=== PATIENT | female | born 1930 | race Caucasian/White ===

== ENCOUNTER 2016-12-12 21:04 | Inpatient (IN) | payer OTHER ==
[~2016-12-12] VITALS: Ht 152.4 cm; Wt 54.4 kg
[2016-12-12 22:15] VITALS: BP 118/57; RESP 18
[2016-12-12 22:22] VITALS: PULSE 80
[2016-12-12 22:28] VITALS: Ht 152.4 cm; Wt 54.4 kg
[2016-12-12 23:08] VITALS: BP 111/54; RESP 18
[2016-12-12] MEDS ORDERED: TEMA15CA PO (23:54)
[2016-12-12] MEDS ORDERED: VIT B6 PO (23:54)
[2016-12-12] MEDS ORDERED: GABA300C16 PO (23:54)
[2016-12-12] MEDS ORDERED: FURO-110 PO (23:54)
[2016-12-13] VITALS (12 sets, daily range): BP systolic 108–136; BP diastolic 56–63; PULSE 80–93; RESP 16–18
[2016-12-13] MEDS ORDERED: OXYBUTYNIN
[2016-12-13] MEDS ORDERED: CALC-277 PO
[2016-12-13] MEDS ORDERED: DOCU-144 PO
[2016-12-13] MEDS: SOD CHLORIDE 0.9% 1,000 ML IV SCH ×2 (00:17→13:49)
[2016-12-13 01:09] LABS: BASOPHIL # 0.1 10^3/ul (0.0-0.1); BASOPHILS % 0.4 % (0.0-2.0); EOSINOPHILS # 0.1 10^3/ul (0.0-0.5); EOSINOPHILS % 0.9 % (0.0-7.0); HEMATOCRIT 33.8 % (37.0-47.0); HEMOGLOBIN 11.1 g/dl (12.0-16.0); LYMPHOCYTES # 3.3 10^3/ul (0.8-2.9); LYMPHOCYTES % 21.9 % (15.0-51.0); MEAN CORPUSCULAR HEMOGLOBIN 29.7 pg (29.0-33.0); MEAN CORPUSCULAR HGB CONC 32.8 g/dl (32.0-37.0); MEAN CORPUSCULAR VOLUME 90.4 fl (82.0-101.0); MEAN PLATELET VOLUME 10.3 fl (7.4-10.4); MONOCYTE # 1.5 10^3/ul (0.3-0.9); NEUTROPHIL # 9.9 10^3/ul (1.6-7.5); NEUTROPHILS % 66.5 % (39.0-77.0); PLATELET COUNT 289 10^3/UL (140-415); RED BLOOD COUNT 3.74 10^6/ul (4.20-5.40); RED CELL DISTRIBUTION WIDTH 14.7 % (11.5-14.5); WHITE BLOOD COUNT 14.9 10^3/ul (4.8-10.8)
[2016-12-13 01:35] LABS: ALBUMIN/GLOBULIN RATIO 0.75; BILIRUBIN,INDIRECT 0.6 mg/dl (0-1.1); BILIRUBIN,TOTAL 0.6 mg/dl (0.2-1.3); CALCIUM 8.8 mg/dl (8.4-10.2); CREATININE 0.75 mg/dl (0.44-1.00); MAGNESIUM 1.6 mg/dl (1.7-2.5); POTASSIUM 4.1 mmol/L (3.5-5.1)
[2016-12-13] MEDS ORDERED: BISACODYL (EC) 5 MG TAB PO PRN (03:30)
[2016-12-13] MEDS ORDERED: NACL 0.9% 3 ML SYG IV SCH (03:30)
[2016-12-13] MEDS ORDERED: ONDANSETRON 4 MG INJ IV PRN (03:30)
[2016-12-13] MEDS ORDERED: DOCUSATE SODIUM 100 MG CAP PO PRN ×2 (03:30)
[2016-12-13] MEDS ORDERED: ACETAMINOPHEN 325 MG TAB PO PRN (03:30)
--- NOTE | 2016-12-13 03:38 | HP ---
Date/Time of Note Date/Time of Note DATE: 12/13/16 TIME: 03:36 Assessment/Plan VTE Prophylaxis VTE Prophylaxis Intervention: SCD's Lines/Catheters IV Catheter Type (from [facility]): Saline Lock Urinary Cath still in place: No Assessment/Plan Chief Complaint/Hosp Course This is a 86-year-old female being admitted to the telemetry floor for: #1 community-acquired pneumonia: Leukocytosis of 14. patient was originally admitted to [facility] and treated with pneumonia. This however appears to not be fully resolved at this time. As she has been treated with antibiotics within the last 90 days. At the current time I will start her on vancomycin and Zosyn, will avoid fluoroquinolones as she has an allergy to ciprofloxacin. Her current 65 score is 1. Upon my examination she does appear to be stable and and not in any acute respiratory distress. Likely in the morning patient will be able to be downgraded to [facility]Sur. #2 lactic acidosis: Resolved at this time. Patient originally had a lactic acid of 2.6 at [facility] upon arrival to [facility] her level is now 1.1 #3hx of thyroid disorder: Patient is not currently on any medication. Patient can likely have this followed up as an outpatient. #4 urinary incontinence: Continue oxybutynin, Lasix. I am unsure of this regimen as patient does not have any renal failure. However I will continue her home medications for now, and she can follow up with the primary care doctor as an outpatient. #5 Insomnia: We will resume temazepam #6 DVT and GI prophylaxis: SCDs, acid gloria Further treatment strategy will be implemented as per the clinical course Problems: HPI/ROS Admit Date/Time Admit Date/Time Dec 12, 2016 at 21:47 Hx of Present Illness Chief complaint: Shaking and chills and cough This is a 86-year-old female originally presented to [facility] for symptoms of shaking chills and cough. Patient according to the transfer documentation has been home for about 1 week after she had recently had a one- week admission to [facility] for pneumonia. she has not taken any antibiotics for the last 5 days. Upon review of the medical records do not see any previous admissions under her name [facility]. When the daughter was questioned at the bedside she did reports that the mom was actually a [facility]. At the current time patient denies any shortness of breath or chest pain. She denies any cough at the current time. Denies any fevers at this time. Allergies: Ciprofloxacin Medications: See VERONICA CANCINO Const: As per HPI Eyes : No pain discharge or redness or change in visual acuity ENT: No pain, sore throat, congestion, congestion, dysphagia or discharge Respiratory: As per HPI Cardiovascular: No chest pain, palpitation, PND, or edema GI : no change in appetite, abdominal pain, nausea, vomiting, diarrhea, constipation, or change in the color his stool Genitourinary: No dysuria, hematuria, flank pain , discharge or CVA tenderness Musculoskeletal: No joint pain, back pain, neck pain, restricted range of motion in neck or joints Skin: No rash, bruising or hives Neuro: No headache, dizziness, syncope, seizure, focal weakness Endocrine: No polyuria, polydipsia, temperature intolerance Psych: No hallucination, depression, anxiety or suicidal ideation PMH/Family/Social Past Medical History Urinary incontinence, back pain, insomnia, thyroid disorder currently not on medications for thyroid Past Surgical History Patient unable to provide information Family History Significant Family History: no pertinent family hx Social History Alcohol Use: none Smoking Status: Former smoker Drug Use: none Exam/Review of Systems Vital Signs Vitals Vital Signs Date Time Temp Pulse Resp B/P Pulse Ox O2 Delivery O2 Flow Rate FiO2 12/13/16 03:10 98.3 91 18 113/58 96 12/12/16 22:44 Nasal Cannula 2.0 Exam Exam General: Patient is well-developed well-nourished The patient is alert oriented -3 lying comfortably in bed. HEENT: Atraumatic, normocephalic. The pupils are equal, round and reactive. Extraocular motor are intact Neck: Supple with full range of motion. No rigidity or meningismus Chest: Nontender Lungs: Mild rhonchi at the right lower field Heart: Normal S1-S2, Regular rhythm and rate. No murmur, S3, or S4 Abdomen: Soft , nontender, nondistended , bowel sounds are present. No guarding no rebound tenderness , No masses or organomegaly. No costovertebral temporal angle mass Extremities: Normal to inspection, no edema no cyanosis Neurologic: Normal mental status, speech normal, cranial nerves II through XII are intact, motor and sensory are intact, no focal weakness Additional Comments Pertinent labs from transfer facility: White blood cell count 14.8 hemoglobin 11.8 hematocrit 35.0 platelets 356 lactate 1.9 chest x-ray findings right mid and upper lung zone airspace disease mild peribronchial thickening in the lower lung zones, nonspecific finding which can be seen in reactive airway disease. See transfer documentation for further detail. Labs Result Diagram: 12/13/164 12/13/16 0034 Medications Medications Current Medications Sodium Chloride (NS) 1,000 ml @ 70 mls/hr [id number] IV Last administered on 12/13t 00:17; Admin Dose 70 MLS/HR; Start 12/13/16 at 00:00 EZIO TRUJILLO Dec 13, 2016 03:38
[2016-12-13] MEDS ORDERED: MAGNESIUM SULFATE 1 GM/D5W 100 ML IVPB ONE (05:00)
[2016-12-13] MEDS: PANTOPRAZOLE 40 MG INJ IV SCH (05:04)
[2016-12-13] MEDS: PIPER-TAZO 3.375 GM IV (PMX) 100 ML IVPB SCH ×4 (05:04→23:39)
[2016-12-13] MEDS ORDERED: VANCOMYCIN 1 GM in NS 250 ML IVPB SCH (05:30)
[2016-12-13] MEDS ORDERED: VANCOMYCIN IV PER PHARMACY XX SCH (05:30)
[2016-12-13] MEDS: GABAPENTIN 300 MG CAP PO SCH ×3 (09:50→21:52)
[2016-12-13 13:13] LABS: BASOPHIL # 0.1 10^3/ul (0.0-0.1); BASOPHILS % 0.5 % (0.0-2.0); EOSINOPHILS # 0.2 10^3/ul (0.0-0.5); EOSINOPHILS % 1.5 % (0.0-7.0); HEMATOCRIT 35.5 % (37.0-47.0); HEMOGLOBIN 11.3 g/dl (12.0-16.0); LYMPHOCYTES # 3.7 10^3/ul (0.8-2.9); MEAN CORPUSCULAR HEMOGLOBIN 28.6 pg (29.0-33.0); MEAN CORPUSCULAR HGB CONC 31.8 g/dl (32.0-37.0); MEAN CORPUSCULAR VOLUME 89.9 fl (82.0-101.0); MEAN PLATELET VOLUME 10.3 fl (7.4-10.4); MONOCYTES % 7.8 % (0.0-11.0); NEUTROPHIL # 8.1 10^3/ul (1.6-7.5); NEUTROPHILS % 61.9 % (39.0-77.0); PLATELET COUNT 294 10^3/UL (140-415); RED BLOOD COUNT 3.95 10^6/ul (4.20-5.40)
[2016-12-13 13:31] LABS: CHOL/HDL RATIO 4.4 RATIO
[2016-12-13 13:32] LABS: ALBUMIN 3.3 g/dl (3.3-4.9); ALBUMIN/GLOBULIN RATIO 0.82; BILIRUBIN,INDIRECT 0.5 mg/dl (0-1.1); BILIRUBIN,TOTAL 0.5 mg/dl (0.2-1.3); CALCIUM 9.1 mg/dl (8.4-10.2); CREATININE 0.8 mg/dl (0.44-1.00); TOTAL PROTEIN 7.3 g/dl (6.1-8.1)
[2016-12-13] MEDS: ZOLPIDEM 5 MG TAB PO PRN (23:39)
[2016-12-14] VITALS (11 sets, daily range): BP systolic 114–121; BP diastolic 56–63; PULSE 82–92; RESP 16–20
[2016-12-14] MEDS: SOD CHLORIDE 0.9% 1,000 ML IV SCH ×2 (03:43→13:04)
[2016-12-14] MEDS: PIPER-TAZO 3.375 GM IV (PMX) 100 ML IVPB SCH ×3 (05:46→18:33)
[2016-12-14] MEDS: PANTOPRAZOLE 40 MG INJ IV SCH (05:46)
[2016-12-14] MEDS: VANCOMYCIN 750 MG in SOD CHLORIDE 0.9% 150 ML IVPB SCH (06:10)
--- NOTE | 2016-12-14 09:31 | RADRPT ---
PROCEDURE: XR Chest 1 View. CLINICAL INDICATION: Shortness of breath, infiltrates. TECHNIQUE: AP view of the chest was obtained. COMPARISON: None. FINDINGS: The heart size is within normal limits. Calcified atherosclerosis is noted in the aorta. The lungs are hyperexpanded. Diffuse interstitial prominence is seen in both lungs. Patchy right upper and low er lobe infiltrates are identified. Scattered atelectasis versus minimal infiltrates are identified in the left lower lobe. Osseous structures are intact. IMPRESSION: Calcified atherosclerosis in the aorta. Hyperexpanded lungs with diffuse mild interstitial prominence in both lungs. Interstitial prominenc e could be chronic. Findings could reflect COPD. Patchy right upper and lower lobe infiltrates. Patchy atelectasis versus minimal infiltrates in the left lower lobe. RPTAT: AA .Bashir Gil MD, MD Date Time Electronically viewed and signed by .Bashir Gil MD, MD on 12/14/2016 09:30 .P/
[2016-12-14] MEDS: GABAPENTIN 300 MG CAP PO SCH ×3 (09:54→21:28)
--- NOTE | 2016-12-14 14:46 | PN ---
Date/Time of Note Date/Time of Note DATE: 12/14/16 TIME: 14:39 Assessment/Plan VTE Prophylaxis VTE Prophylaxis Intervention: SCD's Lines/Catheters IV Catheter Type (from Nrs): Saline Lock Urinary Cath still in place: No Assessment/Plan Chief Complaint/Hosp Course Assessment and plan 1. Community acquired pneumonia. Continue antibiotics. Appears to be improving. Monitor for now. 2. History of thyroid disorder. No active issue noted at this time. Patient for outpatient follow-up for this issue 3. Urinary incontinence. Continue on oxybutynin 4. History of insomnia. Provide with temazepam as needed. Disposition and plan: Continue the antibiotics. Monitor for clinical improvement of pneumonia. Anticipate discharge within the next 24 hours if medically stable Discussed plan of care with Problems: Subjective 24 Hr Interval Summary Free Text/Dictation less shortness of breath But reports having some difficulty with ambulation Respiratory: other (less congested ) Exam/Review of Systems Vital Signs Vitals Vital Signs Date Time Temp Pulse Resp B/P Pulse Ox O2 Delivery O2 Flow Rate FiO2 12/14/16 12:00 88 12/14/16 11:37 97.5 20 118/60 96 12/12/16 22:44 Nasal Cannula 2.0 Intake and Output 12/13/16 12/13/16 12/14/16 15:00 23:00 07:00 Intake Total 340 ml 1000 ml 610 ml Balance 340 ml 1000 ml 610 ml Exam Constitutional: alert, oriented Psych: nl mood/affect Head: normocephalic Respiratory: other (Less congested) Gastrointestinal: non-tender, soft Neurological: ST[employer] II-XII intact, nl mental status, nl speech Results Result Diagram: 12/13/16 1239 12/13/16 1239 Medications Medications Current Medications Sodium Chloride (NS) 1,000 ml @ 70 mls/hr [id number] IV Last administered on 12/14t 13:04; Admin Dose 70 MLS/HR; Start 12/13/16 at 00:00 Ondansetron HCl (Zofran Inj) 4 mg Q6H PRN IV NAUSEA AND/OR VOMITING; Start at 03:30 Acetaminophen (Tylenol Tab) 650 mg Q6H PRN PO PAIN LEVEL 1-3 OR FEVER; Start at 03:30 Docusate Sodium (Colace) 100 mg Q12H PRN PO CONSTIPATION; Start 12/13/16 at 03: 30 Bisacodyl (Dulcolax) 5 mg DAILY PRN PO CONSTIPATION; Start 12/13/16 at 03:30 Pantoprazole (Protonix Iv) 40 mg DAILY@06 IV Last administered on 12/14/16 05: 46; Admin Dose 40 MG; Start 12/13/16 at 06:00 Gabapentin (Neurontin) 300 mg TID PO Last administered on 12/14/16 13:04; Admin Dose 300 MG; Start 12/13/16 at 09:00 Zolpidem Tartrate 5 mg 5 mg HS PRN PO INSOMNIA Last administered on 12/13/16 23:39; Admin Dose 5 MG; Start 12/13/16 at 04:30 Piperacillin Sod/ Tazobactam Sod 100 ml @ 200 mls/hr Q6 IVPB Last administered on 12/14/16 13:04; Admin Dose 200 MLS/HR; Start 12/13/16 at 04:30 Vancomycin HCl/ Sodium Chloride (Vancocin/NS) 150 ml @ 75 mls/hr Q24H IVPB Last administered on 12/14/16 06:10; Admin Dose 75 MLS/HR; Start 12/14/16 at 06 :00 Miscellaneous Information (*Rx Drug Level Order Reminder*) 1 ONCE ONCE XX ; Start 12/15/16 at 05:00; Stop 12/15/16 at 05:01 REYES HARRIS Dec 14, 2016 14:46
[2016-12-14] MEDS: ZOLPIDEM 5 MG TAB PO PRN (22:19)
[2016-12-15] VITALS (7 sets, daily range): BP systolic 117–149; BP diastolic 61–85; PULSE 86–95; RESP 18–20
[2016-12-15] MEDS: VANCOMYCIN 750 MG in SOD CHLORIDE 0.9% 150 ML IVPB SCH ×2 (06:00→10:49)
[2016-12-15] MEDS ORDERED: PANTOPRAZOLE (EC) 40 MG TAB PO SCH (06:00)
[2016-12-15] MEDS: PIPER-TAZO 3.375 GM IV (PMX) 100 ML IVPB SCH ×3 (06:14→11:20)
[2016-12-15 07:05] LABS: CREATININE 0.86 mg/dl (0.44-1.00)
[2016-12-15] MEDS: GABAPENTIN 300 MG CAP PO SCH ×2 (08:43→12:39)
[2016-12-15] MEDS: SOD CHLORIDE 0.9% 1,000 ML IV SCH (08:44)
[2016-12-15] MEDS ORDERED: ALBU8.5H3 INH (09:34)
[2016-12-15] MEDS ORDERED: AMOX1TAB10 PO (09:34)
[2016-12-15] MEDS ORDERED: ADV25050 INHALATION (09:34)
--- NOTE | 2016-12-15 11:18 | PDOCDIS ---
Discharge Instructions DIAGNOSIS Discharge Diagnosis 1. Community acquired pneumonia. 2. History of thyroid disorder. 3. Urinary incontinence. 4. History of insomnia. CONDITION Patient Condition: Stable HOME CARE INSTRUCTIONS: Special Diet: Regular FOLLOW UP/APPOINTMENTS Follow-up Plan 1. Follow up with your primary care provider in one week REYES HARRIS Dec 15, 2016 11:18
[2016-12-15 11:27] LABS: BASOPHIL # 0.1 10^3/ul (0.0-0.1); BASOPHILS % 0.7 % (0.0-2.0); EOSINOPHILS # 0.2 10^3/ul (0.0-0.5); EOSINOPHILS % 2.9 % (0.0-7.0); HEMOGLOBIN 11.6 g/dl (12.0-16.0); LYMPHOCYTES # 3.5 10^3/ul (0.8-2.9); LYMPHOCYTES % 49.2 % (15.0-51.0); MEAN CORPUSCULAR HEMOGLOBIN 29.7 pg (29.0-33.0); MEAN CORPUSCULAR HGB CONC 33.1 g/dl (32.0-37.0); MEAN CORPUSCULAR VOLUME 89.5 fl (82.0-101.0); MEAN PLATELET VOLUME 10.4 fl (7.4-10.4); MONOCYTE # 0.8 10^3/ul (0.3-0.9); MONOCYTES % 10.6 % (0.0-11.0); NEUTROPHIL # 2.6 10^3/ul (1.6-7.5); NEUTROPHILS % 36.2 % (39.0-77.0); PLATELET COUNT 271 10^3/UL (140-415); RED BLOOD COUNT 3.91 10^6/ul (4.20-5.40); RED CELL DISTRIBUTION WIDTH 14.8 % (11.5-14.5); WHITE BLOOD COUNT 7.2 10^3/ul (4.8-10.8)
[2016-12-15 11:43] LABS: CALCIUM 8.7 mg/dl (8.4-10.2); CREATININE 0.83 mg/dl (0.44-1.00); POTASSIUM 3.4 mmol/L (3.5-5.1)
--- NOTE | 2016-12-15 15:00 | DS ---
Date/Time of Note Date/Time of Note DATE: 12/15/16 TIME: 14:55 Discharge Summary Admission/Discharge Info Admit Date/Time Dec 12, 2016 at 21:47 Discharge Date/Time Discharge Diagnosis 1. Community acquired pneumonia. 2. History of thyroid disorder. 3. Urinary incontinence. 4. History of insomnia. Patient Condition: Stable Hospital Course This is an 86-year-old female who initially went to [facility] for symptoms of chills and cough was transferred to [facility] due to insurance issue for diagnosis of pneumonia. Of note patient did have diagnosis of pneumonia over a week ago and was discharged home from the hospital and was not on any antibiotics she progressively got worse. She subsequently went to [facility]. She did have x-ray that did show her to have hyperexpanded lungs acute right upper and lower lobe infiltrates with clinical picture of that of pneumonia. She was placed on appropriate antibiotics as well as provide bronchodilators as needed. She did have good response and she did report that her breathing and she remained afebrile and her white count did normalize. During the course of stay she did improve. She was otherwise optimized medically. She was noted with some subpatellar disorders which was advised for outpatient follow-up and she was continued on oxybutynin for her urinary incontinence. During the course states did improve. The plan of care was discussed with the patient and patient verbalized understanding. On the day of discharge patient was in stable condition Discussed plan of care with Dr Paniagua. Home Meds Active Scripts Amoxicillin/Potassium Clav (Amox-Clav 875-125 mg Tablet) 875-125 mg Tab, 1 TAB PO BID, #20 TAB Prov:REYES HARRIS 12/15/16 Albuterol Sulfate* (Proair HFA*) 8.5 Gm Hfa.aer.ad, 2 PUFF INH Q4H Y for WHEEZING AND SOB, #1 INHALER Prov:REYES HARRIS 12/15/16 Salmeterol Xinaf/Fluticasone* (Advair*) 250-50 Diskus Inhaler, 1 INH INHALATION BID, #1 INHALER Prov:REYES HARRIS 12/15/16 Reported Medications Calcium Carbonate/Vitamin D3 (OYSTER SHELL 500 MG + VIT D TB) 1 Each Tablet, 1 EACH PO BID, TAB 12/13/16 [Oxybutynin] No Conflict Check 12/13/16 Docusate Sodium* (Colace*) 100 Mg Capsule, 100 MG PO TID Y for CONSTIPATION, # 60 CAP 12/13/16 [Vit B6] No Conflict Check, 50 MG PO DAILY 12/12/16 Gabapentin* (Gabapentin*) 300 Mg Capsule, 300 MG PO TID, #90 CAP 12/12/16 Temazepam* (Temazepam*) 15 Mg Capsule, 15 MG PO HS Y for INSOMNIA, CAP 12/12/16 Furosemide* (Lasix*) 20 Mg Tablet, 20 MG PO DAILY, TAB 12/12/16 Follow-up Plan 1. Follow up with your primary care provider in one week Primary Care Provider Not On Staff Doctor Time spent on discharge: > 30 minutes Pending Labs Laboratory Tests Test 12/15/16 05:44 12/15/16 10:56 Blood Urea Nitrogen 7mg/dl (7-20) 6mg/dl (7-20) Creatinine 0.86mg/dl (0.44-1.00) 0.83mg/dl (0.44-1.00) Vancomycin Level Trough 7.4ug/ml (10.0-20.0) White Blood Count 7.210^3/ul (4.8-10.8) Red Blood Count 3.9110^6/ul (4.20-5.40) Hemoglobin 11.6g/dl (12.0-16.0) Hematocrit 35.0% (37.0-47.0) Mean Corpuscular Volume 89.5fl (82.0-101.0) Mean Corpuscular Hemoglobin 29.7pg (29.0-33.0) Mean Corpuscular Hemoglobin Concent 33.1g/dl (32.0-37.0) Red Cell Distribution Width 14.8% (11.5-14.5) Platelet Count 90837^3/UL (140-415) Mean Platelet Volume 10.4fl (7.4-10.4) Neutrophils % 36.2% (39.0-77.0) Lymphocytes % 49.2% (15.0-51.0) Monocytes % 10.6% (0.0-11.0) Eosinophils % 2.9% (0.0-7.0) Basophils % 0.7% (0.0-2.0) Nucleated Red Blood Cells % 0.0/100WBC (0.0-0.0) Neutrophils # 2.610^3/ul (1.6-7.5) Lymphocytes # 3.510^3/ul (0.8-2.9) Monocytes # 0.810^3/ul (0.3-0.9) Eosinophils # 0.210^3/ul (0.0-0.5) Basophils # 0.110^3/ul (0.0-0.1) Nucleated Red Blood Cells # 0.010^3/ul (0.0-0.0) Sodium Level 139mmol/L (135-144) Potassium Level 3.4mmol/L (3.5-5.1) Chloride Level 108mmol/L (97-110) Carbon Dioxide Level 21mmol/L (21-31) Anion Gap 13 (8-16) Glucose Level 122mg/dl (70-220) Calcium Level 8.7mg/dl (8.4-10.2) REYES HARRIS Dec 15, 2016 15:00
[2016-12-15] MEDS ORDERED: VANCOMYCIN 500MG/NS (PMX) 100 ML IVPB SCH (23:00)
== END 2016-12-15 16:14 | disposition home or self-care (01) | DRG 195 ==
LOC: TEL 21:47
PROVIDERS: ADMIT Internal Medicine; ATTEND Internal Medicine
DX: J18.9 Pneumonia, unspecified organism (principal); E07.9 Disorder of thyroid, unspecified; G47.00 Insomnia, unspecified; R32 Unspecified urinary incontinence
CPT/HCPCS: 71010; 80048; 80053; 80061; 80202; 82565; 83036; 83605; 83735; 84520; 85025; 87081; 97162; C9113; J2543; J3370; J3475; J7030